=== PATIENT | male | born 1970 | race Two or more races ===

== ENCOUNTER 2020-07-17 18:51 | Emergency (ER) | payer OTHER ==
[~2020-07-17] VITALS: Ht 165.1 cm; Wt 81.6 kg
[2020-07-17] MEDS ORDERED: BUPIVACAINE 0.25% INJ 50ML VIAL IJ ONE (20:00)
[2020-07-17] MEDS ORDERED: BUPIVACAINE 0.25% INJ 50ML VIAL ONE (20:31)
[2020-07-17] MEDS ORDERED: cefTRIAXone W LIDOCAINE 1 GM IM IM ONE (21:15)
[2020-07-17] MEDS ORDERED: TETANUS-DIPTH-ACEL PERTUSSIS 0.5ML SYR Tdap IM ONE (21:15)
[2020-07-17] MEDS ORDERED: cefTRIAXone SOD 1,000 MG VL ONE (21:49)
[2020-07-17] MEDS ORDERED: LIDOCAINE 2% (LOCAL ANESTH.) PF 5ml SDV ONE (21:49)
[2020-07-17 22:00] VITALS: BP 122/83
[2020-07-17] MEDS ORDERED: LIDOCAINE 2%HCL (LOCAL ANESTH.) INJ 10ml MDV IJ ONE (22:45)
== END 2020-07-17 22:58 | disposition home or self-care (01) ==
LOC: ER 18:51
DX: S62.631B Displaced fracture of distal phalanx of left index finger, initial encounter for open fracture (principal); Z88.0 Allergy status to penicillin; X58.XXXA Exposure to other specified factors, initial encounter; Y93.89 Activity, other specified; Y92.89 Other specified places as the place of occurrence of the external cause; Y99.8 Other external cause status
CPT/HCPCS: 64450; 73130; 73140; 90471; 90715; 96372; 99284; J0696; J2001; J3490